=== PATIENT | female | born 1975 | race Asian ===

== ENCOUNTER 2016-06-04 19:09 | Emergency (ER) | payer OTHER ==
[~2016-06-04] VITALS: Ht 162.6 cm; Wt 75.4 kg
[2016-06-04 20:53] LABS: HEMOGLOBIN 10.5 g/dL (11.7-16.4)
[2016-06-04] MEDS ORDERED: LABETALOL 5MG/ML, 20ML IVPush STA (21:03)
[2016-06-04 21:05] LABS: BLOOD UREA NITROGEN 14 mg/dL (7-18)
[2016-06-04] MEDS ORDERED: LABETALOL 5MG/ML, 20ML ONE (21:14)
[2016-06-04 22:05] VITALS: BP 155/84
== END 2016-06-04 22:07 | disposition home or self-care (01) ==
LOC: ED 21:32
DX: I10 Essential (primary) hypertension (principal)
CPT/HCPCS: 36415; 71020; 80048; 85025; 93005; 96360